=== PATIENT | male | born 1985 | race Two or more races ===

== ENCOUNTER 2019-03-15 12:29 | Outpatient (CLI) | payer OTHER ==
[2019-03-15 13:20] LABS: BASOPHILS % (AUTO) 0.7 % (0.0-2.0); EOSINOPHILS # (AUTO) 0.1 K/uL (0-0.4); EOSINOPHILS % (AUTO) 1.9 % (0.0-4.0); HEMATOCRIT 44.3 % (36-52); HEMOGLOBIN 14.9 g/dL (12.0-18.0); LYMPHOCYTES # (AUTO) 1.7 K/uL (2.0-11.5); LYMPHOCYTES % (AUTO) 32.6 % (20.5-51.1); MEAN CORPUSCULAR HEMOGLOBIN 30 pg (27-31); MEAN CORPUSCULAR HGB CONC 34 g/dL (33-37); MEAN CORPUSCULAR VOLUME 88.1 fL (80-94); MONOCYTES # (AUTO) 0.4 K/uL (0.8-1.0); MONOCYTES % (AUTO) 6.9 % (1.7-9.3); NEUTROPHILS % (AUTO) 57.9 % (42.2-75.2); PLATELET COUNT (AUTO) 200 K/uL (140-450); RED BLOOD CELL COUNT(AUTO) 5.04 MIL/uL (4.20-6.10); RED CELL DISTRIBUTION WIDTH 12.7 % (11.6-13.7); WHITE BLOOD COUNT (AUTO) 5.2 K/uL (4.8-10.8)
[2019-03-15 13:21] LABS: APPEARANCE,URINE CLEAR (CLEAR); BILIRUBIN,URINE NEGATIVE (NEGATIVE); BLOOD, URINE NEGATIVE (NEGATIVE); COLOR,URINE YELLOW (YELLOW); LEUKOCYTE ESTERASE ,URINE NEGATIVE (NEGATIVE); NITRITE, URINE NEGATIVE (NEGATIVE); UGLUCOSE NEGATIVE (NEGATIVE)
[2019-03-15 13:41] LABS: ANION GAP 11.2 (8-16); CARBON DIOXIDE 30.2 mmol/L (21-32); CREATININE 0.9 mg/dL (0.7-1.3); POTASSIUM 4.4 mmol/L (3.5-5.1)
[2019-03-15 13:57] LABS: THYROID STIMULATING HORMONE 0.85 uIU/mL (0.34-3.74); TOTAL BILIRUBIN 0.5 mg/dL (0.0-1.0)
[2019-03-15 15:24] LABS: CHOL/HDL RATIO 3.2 (1-4.5)
[2019-03-16 08:14] LABS: T4 (THYROXINE) 7.4 ug/dL (4.5-12.0)
== END 2019-03-15 21:32 | disposition home or self-care (01) ==
LOC: MLB 12:29
PROVIDERS: ATTEND Family Medicine
DX: E55.9 Vitamin D deficiency, unspecified (principal); E03.9 Hypothyroidism, unspecified
CPT/HCPCS: 36415; 80053; 81003; 82306; 83036; 84436; 84443; 85025

== ENCOUNTER 2019-07-23 09:49 | Outpatient (CLI) | payer OTHER ==
[2019-07-23 10:44] LABS: ANION GAP 10.6 (8-16); CARBON DIOXIDE 31.2 mmol/L (21-32); POTASSIUM 4.8 mmol/L (3.5-5.1)
[2019-07-23 11:51] LABS: THYROID STIMULATING HORMONE 1.09 uIU/mL (0.34-3.74)
[2019-07-24 09:07] LABS: FERRITIN 139 ng/mL (30-400); THYROID PEROXIDASE (TPO) AB 14 IU/mL (0-34); TRIIODOTHYRONINE FREE 3.5 pg/mL (2.0-4.4)
[2019-07-25 15:19] LABS: ANTI-NUCLEAR ANTIBODY,DIRECT Negative (Negative)
== END 2019-07-23 22:07 | disposition home or self-care (01) ==
LOC: MLB 09:49
DX: L80 Vitiligo (principal)
CPT/HCPCS: 36415; 80048; 82728; 83540; 84443; 84481; 86038; 86376